=== PATIENT | male | born 1995 | race Hispanic/Latino ===

== ENCOUNTER 2016-10-22 16:38 | Emergency (ER) | payer MEDICAID ==
[2016-10-22 16:51] VITALS: BMI 27.1
[2016-10-22 17:12] LABS: URINE BILIRUBIN NEGATIVE (NEGATIVE); URINE BLOOD NEGATIVE (NEGATIVE); URINE GLUCOSE (UA) NEGATIVE (NEGATIVE); URINE LEUKOCYTE ESTERASE NEGATIVE Leu/uL (NEGATIVE); URINE NITRATE NEGATIVE (NEGATIVE); URINE PROTEIN NEGATIVE mg/dL (<30 mg/dL); URINE UROBILINOGEN 0.2 E.U./dL (<1 E.U./dL)
--- NOTE | 2016-10-22 17:21 | RAD ---
HISTORY: PES COMPARISON: 11/02/2015. FINDINGS: LUNGS: The lungs are well inflated and clear. PLEURA: No significant pleural effusion identified, no pneumothorax apparent. CARDIOVASCULAR: Normal. OSSEOUS STRUCTURES: No significant abnormalities. VISUALIZED UPPER ABDOMEN: Normal. OTHER FINDINGS: None. IMPRESSION: No active pulmonary disease.
[2016-10-22 17:22] VITALS: TEMP 98.6
[2016-10-22 17:26] LABS: URINE APPEARANCE CLEAR (CLEAR); URINE COLOR YELLOW (YELLOW)
[2016-10-22 17:27] LABS: BASO # 0.01 K/mm3 (0.0-2.0); BASO % 0.2 % (0.0-3.0); EOS # 0.1 (0.0-0.7); EOS % 0.8 % (1.5-5.0); GRAN # 4.85 (1.4-6.5); HEMOGLOBIN 12.2 gm/dL (14.0-18.0); LYMPH # 1.3 (1.2-3.4); LYMPH % 19.2 % (22.0-35.0); MEAN CORPUSCULAR HEMOGLOBIN 29.8 pg (25.0-35.0); MEAN CORPUSCULAR HGB CONC 33.9 g/dl (31.0-37.0); MEAN PLATELET VOLUME 9.4 fl (7.0-11.0); MONO # 0.5 (0.1-0.6); MONO % 6.8 % (1.0-6.0); PLATELET COUNT 256 10^3/uL (120.0-450.0); RBC 4.09 10^6/uL (3.5-6.1); RED CELL DISTRIBUTION WIDTH 12.6 % (11.5-14.5); WHITE BLOOD COUNT 6.6 10^3/ul (4.5-11.0)
[2016-10-22 17:33] LABS: ALB/GLOB RATIO 1.5 (1.1-1.8); ALBUMIN 4.2 g/dL (3.0-4.8); ALT/SGPT 21 U/L (7-56); AST/SGOT 27 U/L (15-59); BLOOD UREA NITROGEN 7 mg/dL (7-21); CALCIUM 9.6 mg/dL (8.4-10.5); GFR AFRICAN-AMERICAN > 60; GFR NON-AFRICAN AMERICAN > 60; SALICYLATE < 1 mg/dL (2.0-20.0)
[2016-10-22 17:35] LABS: ACETAMINOPHEN < 10.0 ug/ml (10.0-20.0)
[2016-10-22 17:35] LABS: BARBITURATES, UR NEGATIVE (NEGATIVE); BENZODIAZEPINES, UR POSITIVE (NEGATIVE); OPIATES, UR POSITIVE (NEGATIVE); PHENCYCLIDINE, UR NEGATIVE (NEGATIVE)
--- NOTE | 2016-10-22 17:47 | ED PDOC ---
Arrival/HPI - General Chief Complaint: Psychiatric Evaluation Time Seen by Provider: 10/22/16 16:42 Historian: Patient - History of Present Illness Time/Duration: Prior to Arrival Symptom Onset: Gradual Symptom Course: Unchanged Associated Symptoms (Text): 10/22/16 17:44 Brought to the emergency department from home via ambulance accompanied by police. Apparently, patient stated that he wanted to hurt himself, by overdosing , to police or his therapist. Patient is reporting that someone told him that he needed to say that he was suicidal in order for him to get into rehabilitation for narcotic abuse. Patient reports that he is not really suicidal, but just said that so that he could get detox. He does have a history of depression and substance abuse. Past Medical History - Tetanus Immunization Tetanus Immunization: Unknown - Past Medical History Past Medical History: No Previous - Cardiac Hx Cardiac Disorders: No Hx Cardiac Arrhythmia: Yes Hx Congestive Heart Failure: No Hx Hypertension: Yes - Pulmonary Hx Respiratory Disorders: No Hx Chronic Obstructive Pulmonary Disease (COPD): No - Neurological HX Cerebrovascular Accident: No Hx Transient Ischemic Attacks (TIA): Yes - HEENT Hx HEENT Disorder: No - Renal Hx Renal Disorder: No Hx Renal Failure: No - Endocrine/Metabolic Hx Endocrine Disorders: No Hx Diabetes Mellitus Type 1: No Hx Diabetes Mellitus Type 2: No Hx Hypothyroidism: No - Hematological/Oncological Hx Blood Disorders: No - Integumentary Hx Dermatological Disorder: No - Musculoskeletal/Rheumatological Hx Arthritis: No Hx Osteoporosis: Yes Hx Rheumatoid Arthritis: No - Gastrointestinal Hx Gastrointestinal Disorders: Yes Hx Gastroesophageal Reflux: Yes - Genitourinary/Gynecological Hx Genitourinary Disorders: Yes Hx Urinary Tract Infection: Yes - Psychiatric Hx Psychophysiologic Disorder: Yes Hx Anxiety: Yes Hx Depression: Yes Hx Emotional Abuse: No Hx Physical Abuse: No Hx Substance Use: Yes - Past Surgical History Past Surgical History: No Previous - Surgical History Other/Comment: hypospadias - Anesthesia Hx Anesthesia: Yes Hx Anesthesia Reactions: No Hx Malignant Hyperthermia: No - Suicidal Assessment Feels Threatened In Home Enviroment: No Family/Social History - Physician Review Nursing Documentation Reviewed: Yes Family/Social History: Unknown Family HX Smoking Status: Never Smoked Hx Alcohol Use: Yes Hx Substance Use: Yes Substance used: heroine today Hx Substance Use Treatment: No Allergies/Home Meds Allergies/Adverse Reactions: Allergies ibuprofen Allergy (Verified 07/18/17 17:22) RASH morphine Allergy (Verified 10/22/16 17:22) RASH Penicillins Allergy (Verified 10/22/16 17:22) SWELLING CLAMS Allergy (Uncoded 10/22/16 17:22) ANGIOEDEMA Home Medications: Home Meds Medication Instructions Recorded Confirmed Tylenol/Codeine 300 MG/30 MG 30 - 300 mg PO Q4 PRN 08/20/14 08/20/14 Xanax 1 mg PO Q6 PRN 08/20/14 08/20/14 Review of Systems - Physician Review All systems were reviewed & negative as marked: Yes - Review of Systems Constitutional: Normal Respiratory: Normal Cardiovascular: Normal Gastrointestinal: Normal Genitourinary Male: Normal Neurological: Normal Physical Exam Vital Signs Temp Pulse Resp BP Pulse Ox 10/22/16 17:17 98.6 F 115 H 16 149/99 H 98 Temperature: Afebrile Blood Pressure: Hypertensive Pulse: Tachycardic Respiratory Rate: Normal Appearance: Positive for: Well-Appearing, Non-Toxic, Comfortable Pain Distress: None Mental Status: Positive for: Alert and Oriented X 3 - Systems Exam Head: Present: Atraumatic, Normocephalic Pupils: Present: PERRL Extroacular Muscles: Present: EOMI Conjunctiva: Present: Normal Mouth: Present: Moist Mucous Membranes Pharnyx: No: ERYTHEMA, EXUDATE, TONSILS ENLARGED Neck: Present: Normal Range of Motion Respiratory/Chest: Present: Clear to Auscultation, Good Air Exchange. No: Respiratory Distress, Accessory Muscle Use Cardiovascular: Present: Regular Rate and Rhythm, Normal S1, S2. No: Murmurs Abdomen: Present: Normal Bowel Sounds. No: Tenderness, Distention, Peritoneal Signs Upper Extremity: Present: Normal Inspection. No: Cyanosis, Edema Lower Extremity: Present: Normal Inspection. No: Edema Neurological: Present: GCS=15, CN II-XII Intact, Speech Normal, Motor Func Grossly Intact, Gait Normal Skin: Present: Warm, Dry, Normal Color. No: Rashes Psychiatric: Present: Alert, Oriented x 3, Normal Insight, Normal Concentration Medical Decision Making ED Course and Treatment: 10/22/16 17:48 EKG shows sinus tachycardia rate approximately [address] or T-wave changes. Crisis has been called and will evaluate the patient in the emergency department. Care of this patient will be endorsed to the night emergency department physician waiting for crisis evaluation and final disposition. - Lab Interpretations Lab Results: 10/22/16 17:05 10/22/16 17:05 Lab Results 10/22/16 17:05: Alcohol, Quantitative < 10 10/22/16 17:05: Salicylates < 1 L, Acetaminophen < 10.0 L 10/22/16 17:05: Sodium 141, Potassium 4.7, Chloride 101, Carbon Dioxide 30, Anion Gap 15, BUN 7, Creatinine 0.5, Est GFR ( Amer) > 60, Est GFR (Non- Af Amer) > 60, Random Glucose 107, Calcium 9.6, Total Bilirubin 0.3, AST 27, ALT 21, Alkaline Phosphatase 61, Total Creatine Kinase 70, Total Protein 7.0, Albumin 4.2, Globulin 2.8, Albumin/Globulin Ratio 1.5 10/22/16 17:05: WBC 6.6 D, RBC 4.09, Hgb 12.2 L, Hct 36.0 L, MCV 88.0, MCH 29.8 , MCHC 33.9, RDW 12.6, Plt Count 256, MPV 9.4, Gran % 73.0 H, Lymph % (Auto) 19.2 L, [place] % (Auto) 6.8 H, Eos % (Auto) 0.8 L, Baso % (Auto) 0.2, Gran # 4.85 , Lymph # 1.3, [place] # 0.5, Eos # 0.1, Baso # 0.01 10/22/16 17:00: Urine Opiates Screen Positive H, Urine Methadone Screen Negative , Ur Barbiturates Screen Negative, Ur Phencyclidine Scrn Negative, Ur Amphetamines Screen Negative, U Benzodiazepines Scrn Positive H, U Oth Cocaine Metabols Negative, U Cannabinoids Screen Negative 10/22/16 17:00: Urine Color Yellow, Urine Appearance Clear, Urine pH 7.0, Ur Specific [place] 1.020, Urine Protein Negative, Urine Glucose (UA) Negative, Urine Ketones Negative, Urine Blood Negative, Urine Nitrate Negative, Urine Bilirubin Negative, Urine Urobilinogen 0.2, Ur Leukocyte Esterase Negative - RAD Interpretation Radiology Orders: 10/22/16 16:52 CHEST PORTABLE [RAD] Stat Chest 1 view shows no infiltrate effusion or cardiomegaly. Imaging System Administrator: ED Physician Disposition/Present on Arrival - Present on Arrival Any Indicators Present on Arrival: No History of DVT/PE: No History of Uncontrolled Diabetes: No Urinary Catheter: No History of Decub. Ulcer: No History Surgical Site Infection Following: None - Disposition Have Diagnosis and Disposition been Completed?: Yes Diagnosis: Depression, Substance abuse Disposition Time: 18:38 Patient Problems: Current Active Problems Problem Status Onset Depression Acute Substance abuse Acute Condition: GOOD Referrals: Hasmukh Jacob MD [Primary Care Provider] - Follow up with primary
--- NOTE | 2016-10-22 20:17 | ED PDOC ---
Physical Exam Vital Signs Temp Pulse Resp BP Pulse Ox 10/22/16 18:55 110 H 18 145/89 98 10/22/16 17:17 98.6 F 115 H 16 149/99 H 98 Medical Decision Making ED Course and Treatment: 10/22/16 20:17 pt cleared by pes for dc - Lab Interpretations Lab Results: 10/22/16 17:05 10/22/16 17:05 Lab Results 10/22/16 17:05: Alcohol, Quantitative < 10 10/22/16 17:05: Salicylates < 1 L, Acetaminophen < 10.0 L 10/22/16 17:05: Sodium 141, Potassium 4.7, Chloride 101, Carbon Dioxide 30, Anion Gap 15, BUN 7, Creatinine 0.5, Est GFR ( Amer) > 60, Est GFR (Non- Af Amer) > 60, Random Glucose 107, Calcium 9.6, Total Bilirubin 0.3, AST 27, ALT 21, Alkaline Phosphatase 61, Total Creatine Kinase 70, Total Protein 7.0, Albumin 4.2, Globulin 2.8, Albumin/Globulin Ratio 1.5 10/22/16 17:05: WBC 6.6 D, RBC 4.09, Hgb 12.2 L, Hct 36.0 L, MCV 88.0, MCH 29.8 , MCHC 33.9, RDW 12.6, Plt Count 256, MPV 9.4, Gran % 73.0 H, Lymph % (Auto) 19.2 L, [place] % (Auto) 6.8 H, Eos % (Auto) 0.8 L, Baso % (Auto) 0.2, Gran # 4.85 , Lymph # 1.3, [place] # 0.5, Eos # 0.1, Baso # 0.01 10/22/16 17:00: Urine Opiates Screen Positive H, Urine Methadone Screen Negative , Ur Barbiturates Screen Negative, Ur Phencyclidine Scrn Negative, Ur Amphetamines Screen Negative, U Benzodiazepines Scrn Positive H, U Oth Cocaine Metabols Negative, U Cannabinoids Screen Negative 10/22/16 17:00: Urine Color Yellow, Urine Appearance Clear, Urine pH 7.0, Ur Specific [place] 1.020, Urine Protein Negative, Urine Glucose (UA) Negative, Urine Ketones Negative, Urine Blood Negative, Urine Nitrate Negative, Urine Bilirubin Negative, Urine Urobilinogen 0.2, Ur Leukocyte Esterase Negative - RAD Interpretation Radiology Orders: 10/22/16 16:52 CHEST PORTABLE [RAD] Stat Disposition/Present on Arrival - Present on Arrival Any Indicators Present on Arrival: No History of DVT/PE: No History of Uncontrolled Diabetes: No Urinary Catheter: No History of Decub. Ulcer: No History Surgical Site Infection Following: None - Disposition Have Diagnosis and Disposition been Completed?: Yes Diagnosis: Depression, Substance abuse Disposition: HOME/ ROUTINE Disposition Time: 20:17 Patient Problems: Current Active Problems Problem Status Onset Depression Acute Substance abuse Acute Condition: GOOD Referrals: Hasmukh Jacob MD [Primary Care Provider] - Follow up with primary
[2016-10-22 22:21] VITALS: BP 126/78; PULSE 78; RESP 16; O2SAT 99
--- NOTE | 2016-10-23 12:45 | CARD ---
APPROVED REPORT EKG Measurement Heart [id number] <Conclusion> Sinus tachycardia Otherwise normal ECG
== END 2016-10-22 20:30 | disposition home or self-care (01) ==
LOC: ED 16:38
DX: F32.9 Major depressive disorder, single episode, unspecified (principal); F19.10 Other psychoactive substance abuse, uncomplicated; I10 Essential (primary) hypertension; F41.9 Anxiety disorder, unspecified; Z86.73 Personal history of transient ischemic attack (TIA), and cerebral infarction without residual deficits

== ENCOUNTER 2016-11-21 15:13 | Emergency (ER) | payer MEDICAID ==
[2016-11-21 15:16] VITALS: BMI 27.1
[2016-11-21 15:34] VITALS: BP 121/90; PULSE 106; RESP 18; TEMP 98.4
[2016-11-21] MEDS ORDERED: Lidocaine 1% Inj (20ml) ONE (15:42)
--- NOTE | 2016-11-21 16:16 | ED PDOC ---
Arrival/HPI - General Chief Complaint: Abnormal Skin Integrity Time Seen by Provider: 11/21/16 15:20 Historian: Patient - History of Present Illness Narrative History of Present Illness (Text): 11/21/16 15:20 Alexx Camp is a 21 year old male, whose past medical history includes abscesses, who presents to the emergency department complaining of a worsening abscess to his left thigh for 5 days. Patient has no other complaints at this time. Time/Duration: < week (5 days) Symptom Onset: Gradual Symptom Course: Worsening Activities at Onset: Light Context: Home Past Medical History - Provider Review Nursing Documentation Reviewed: Yes - Infectious Disease Hx of Infectious Diseases: None - Tetanus Immunization Tetanus Immunization: Unknown - Past Medical History Past Medical History: No Previous - Cardiac Hx Cardiac Disorders: No Hx Hypertension: Yes - Pulmonary Hx Tuberculosis: No - Neurological HX Cerebrovascular Accident: No Hx Seizures: No - HEENT Hx HEENT Disorder: No - Renal Hx Renal Disorder: No Hx Renal Failure: No - Endocrine/Metabolic Hx Endocrine Disorders: No Hx Diabetes Mellitus Type 1: No Hx Diabetes Mellitus Type 2: No Hx Hypothyroidism: No - Hematological/Oncological Hx Cancer: No - Integumentary Hx Dermatological Disorder: No - Musculoskeletal/Rheumatological Hx Arthritis: No Hx Osteoporosis: Yes Hx Rheumatoid Arthritis: No - Gastrointestinal Hx Gastrointestinal Disorders: Yes Hx Gastroesophageal Reflux: Yes - Genitourinary/Gynecological Hx Sexually Transmitted Diseases: No - Psychiatric Hx Psychophysiologic Disorder: Yes Hx Anxiety: Yes Hx Depression: Yes Hx Emotional Abuse: No Hx Physical Abuse: No Hx Substance Use: Yes - Past Surgical History Past Surgical History: No Previous - Surgical History Other/Comment: hypospadias - Anesthesia Hx Anesthesia: Yes Hx Anesthesia Reactions: No Hx Malignant Hyperthermia: No - Suicidal Assessment Feels Threatened In Home Enviroment: No Family/Social History - Physician Review Nursing Documentation Reviewed: Yes Family/Social History: No Known Family HX Smoking Status: Never Smoked Hx Alcohol Use: Yes Hx Substance Use: Yes Substance used: heroine today Hx Substance Use Treatment: No Allergies/Home Meds Allergies/Adverse Reactions: Allergies ibuprofen Allergy (Verified 11/21/16 15:27) RASH morphine Allergy (Verified 11/21/16 15:27) RASH Penicillins Allergy (Verified 11/21/16 15:27) SWELLING CLAMS Allergy (Uncoded 11/21/16 15:27) ANGIOEDEMA Home Medications: Home Meds Medication Instructions Recorded Confirmed Paolanax 2 mg PO DAILY 08/20/14 11/21/16 cloNIDine [Catapres] 0.1 mg PO BID 11/21/16 11/21/16 Physical Exam - Physical Exam Narrative Physical Exam (Text): - Review of Systems Constitutional: Normal. absent: Fatigue, Weight Change, Fevers Eyes: Normal ENT: Normal Respiratory: Normal absent: SOB, Cough, Sputum Cardiovascular: Normal absent: Chest pain, Palpitations, Syncope Gastrointestinal: Normal absent: Abdominal pain, Diarrhea, Nausea, Vomiting Genitourinary: Normal. absent: Dysuria, Frequency, Hematuria Musculoskeletal: Normal. absent: Arthralgias, Back Pain, Neck Pain Skin: Worsening abscess to left thigh. Neurological: Normal absent: Focal Weakness Endocrine: Normal Hemo/Lymphatic: Normal Psychiatric: Normal - Physical exam Patient appears age appropriate, speaking full sentences without difficulty. - Systems Exam Head: Present: Atraumatic, Normocephalic Pupils: Present: PERRL Extraocular Muscles: Present: EOMI Conjunctiva: Present: Normal Mouth: Present: Moist Mucous Membranes Neck: Present: Normal Range of Motion. No: MIDLINE TENDERNESS, Paraspinal Tenderness Respiratory/Chest: Present: Clear to Auscultation, Good Air Exchange. No: Respiratory Distress, Accessory Muscle Use, Tachypnic Cardiovascular: Present: Regular Rate and Rhythm, Normal S1, S2, Peripheral Pulses Present. No: Murmurs Abdomen: Present: Normal Bowel Sounds, No: Tenderness, Peritoneal Signs, Rebound, Guarding, Distention Back: Present: Normal Inspection. No: Midline Tenderness, Paraspinal Tenderness Upper Extremity: Present: Normal Inspection. No: Cyanosis, Edema Lower Extremity: large 5 cm abscess to left thigh with surrounding cellulitis. Fluctuance noted. Neurological: Present: GCS=15, Speech Normal, cranial nerves II through XII fully intact with no cerebellar abnormality, neuro-sensory fully intact. No focal neurological deficits. Skin: Present: Warm, Dry, Normal Color. No: Rashes Lymphatic: Present: OX3, NI, NC Psychiatric: Present: Alert, Oriented x 3, Normal Insight, Normal Concentration Vital Signs Reviewed: Yes Vital Signs Temp Pulse Resp BP Pulse Ox 11/21/16 16:29 18 97 11/21/16 15:33 98.4 F 106 H 18 121/90 100 Temperature: Afebrile Blood Pressure: Normal Pulse: Tachycardic Respiratory Rate: Normal Appearance: Positive for: Well-Appearing, Non-Toxic, Comfortable Pain Distress: None Mental Status: Positive for: Alert and Oriented X 3 Medical Decision Making ED Course and Treatment: 11/21/16 15:20 Impression: 21 year old male complaining of a worsening abscess to his left thigh for the past 5 days. Differential Diagnosis included but are not limited to: Abscess Plan: -- I&D procedure -- discharge Progress Notes: 11/21/16 16:45 Procedure: Incision & Drainage. Verbal consent obtained. Performed by the emergency provider Indication: Abscess Location: Right upper Preparation: The area was prepped and draped in the usual sterile fashion and was cleansed with 1% lidocaine. Local infiltration of Lidocaine 1% with Epi was used for anesthesia. Procedure: The most fluctuant portion of the abscess was incised with a #11 scalpel. Approximately 20 mL of purulent and serosanguinous fluid was obtained. The abscess was packed. A dressing was applied by the RN. Post-Procedure: On exam the abscess is notably less fluctuant. The patient tolerated the procedure well, and there were no complications. Cultured: NO After procedure, patient states that he feels much better and pain resolved. Patient instructed to follow up with ER or PMD for packing removal after 48 hours. Pt verbalized understands to return to the ER right away for new or worsening symptoms or for inability to f/u with PMD or specialist as instructed. Patient verbalized full agreement with and understanding of discharge instructions. States that he agrees with the plan and disposition. Verbalized and repeated discharge instructions and plan. I have given the patient opportunity to ask any additional questions. - Medication Orders Current Medication Orders: Discontinued Medications Lidocaine HCl (Lidocaine 1% (20ml)) Confirm Administered Dose 20 ml .ROUTE .STK- MED ONE Stop: 11/21/16 15:43 - Scribe Statement The provider has reviewed the documentation as recorded by the Alexandru Frank Provider Scribe Attestation: All medical record entries made by the Scribe were at my direction and personally dictated by me. I have reviewed the chart and agree that the record accurately reflects my personal performance of the history, physical exam, medical decision making, and the department course for this patient. I have also personally directed, reviewed, and agree with the discharge instructions and disposition. Disposition/Present on Arrival - Present on Arrival Any Indicators Present on Arrival: No History of DVT/PE: No History of Uncontrolled Diabetes: No Urinary Catheter: No History of Decub. Ulcer: No History Surgical Site Infection Following: None - Disposition Have Diagnosis and Disposition been Completed?: Yes Diagnosis: Abscess Disposition: HOME/ ROUTINE Disposition Time: 16:14 Patient Plan: Discharge Condition: GOOD Discharge Instructions (ExitCare): Abscess Incision and Drainage (ED) Additional Instructions: PLEASE RETURN TO THE ER IN 2 DAYS FOR WOUND CHECK AND PACKING REMOVAL RETURN TO THE ER RIGHT AWAY FOR FEVERS, CHILLS, PAIN, DRAINAGE, BLEEDING, NUMBNESS RETURN TO THE ER FOR ANY OTHER CONCERNS OR COMPLAINTS Prescriptions: Cephalexin [Keflex] 500 mg PO TID #21 capsule oxyCODONE/Acetaminophen [Percocet 5/325 mg Tab] 1 ea PO BID PRN #6 tab PRN Reason: Pain, Moderate (4-7) Referrals: PCP,NO [Primary Care Provider] - Follow up with primary Hasmukh Jacob MD [Staff Provider] - Follow up with primary Forms: [employer] ([place])
[2016-11-21 16:30] VITALS: O2SAT 97
== END 2016-11-21 16:30 | disposition home or self-care (01) ==
LOC: ED 15:13
DX: L02.416 Cutaneous abscess of left lower limb (principal); I10 Essential (primary) hypertension

== ENCOUNTER 2016-11-23 20:13 | Emergency (ER) | payer MEDICAID ==
[2016-11-23 20:29] VITALS: BMI 28.8
[2016-11-23 20:35] VITALS: BP 95/67; PULSE 92; TEMP 98
--- NOTE | 2016-11-23 21:23 | ED PDOC ---
Arrival/HPI - General Chief Complaint: Wound Check Time Seen by Provider: 11/23/16 21:22 Historian: Patient - History of Present Illness Narrative History of Present Illness (Text): 11/23/16 21:22 Patient was just assigned a room in ED This 21 yo male came to this ED for wound check, and packing removal. Patient stated he has an I&D x 2 days ago, and he was placed on Keflex. Patient stated wound is better than 2 days ago. Denies fever or new complain. Time/Duration: Other (see hpi) Context: Home Past Medical History - Provider Review Nursing Documentation Reviewed: Yes - Infectious Disease Hx of Infectious Diseases: None - Tetanus Immunization Tetanus Immunization: Unknown - Past Medical History Past Medical History: No Previous - Cardiac Hx Cardiac Disorders: No Hx Hypertension: Yes - Pulmonary Hx Tuberculosis: No - Neurological HX Cerebrovascular Accident: No Hx Seizures: No - HEENT Hx HEENT Disorder: No - Renal Hx Renal Disorder: No Hx Renal Failure: No - Endocrine/Metabolic Hx Endocrine Disorders: No - Hematological/Oncological Hx Cancer: No - Integumentary Hx Dermatological Disorder: No - Musculoskeletal/Rheumatological Hx Osteoporosis: Yes - Gastrointestinal Hx Gastrointestinal Disorders: Yes Hx Gastroesophageal Reflux: Yes - Genitourinary/Gynecological Hx Sexually Transmitted Diseases: No - Psychiatric Hx Psychophysiologic Disorder: Yes Hx Anxiety: Yes Hx Depression: Yes Hx Physical Abuse: No Hx Substance Use: Yes - Past Surgical History Past Surgical History: No Previous - Surgical History Other/Comment: hypospadias - Anesthesia Hx Anesthesia: Yes Hx Anesthesia Reactions: No Hx Malignant Hyperthermia: No - Suicidal Assessment Feels Threatened In Home Enviroment: No Family/Social History - Physician Review Nursing Documentation Reviewed: Yes Family/Social History: Other (non-contributory) Smoking Status: Never Smoked Hx Alcohol Use: Yes Hx Substance Use: Yes Substance used: heroine today Hx Substance Use Treatment: No Allergies/Home Meds Allergies/Adverse Reactions: Allergies ibuprofen Allergy (Verified 11/21/16 15:27) RASH morphine Allergy (Verified 11/21/16 15:27) RASH Penicillins Allergy (Verified 11/21/16 15:27) SWELLING CLAMS Allergy (Uncoded 11/21/16 15:27) ANGIOEDEMA Home Medications: Home Meds Medication Instructions Recorded Confirmed Xanax 2 mg PO DAILY 08/20/14 11/23/16 cloNIDine [Catapres] 0.1 mg PO BID 11/21/16 11/23/16 Review of Systems - Review of Systems Constitutional: Normal. absent: Fatigue, Weight Change, Fevers Eyes: Normal ENT: Normal Respiratory: Normal Cardiovascular: Normal Gastrointestinal: Normal Genitourinary Male: Normal Musculoskeletal: Normal Skin: Other (see hpi) Neurological: Normal Endocrine: Normal Hemo/Lymphatic: Normal Psychiatric: Normal Physical Exam Vital Signs Temp Pulse Resp BP Pulse Ox 11/23/16 20:14 98 F 92 H 18 95/67 L 100 Temperature: Afebrile Blood Pressure: Normal Pulse: Regular Respiratory Rate: Normal Appearance: Positive for: Well-Appearing, Non-Toxic, Comfortable Pain Distress: None Mental Status: Positive for: Alert and Oriented X 3 - Systems Exam Head: Present: Atraumatic, Normocephalic Pupils: Present: PERRL Extroacular Muscles: Present: EOMI Conjunctiva: Present: Normal Mouth: Present: Moist Mucous Membranes Neck: Present: Normal Range of Motion Upper Extremity: Present: Normal Inspection, Normal ROM Lower Extremity: Present: NORMAL PULSES, Normal ROM, Neurovascularly Intact, Capillary Refill < 2 s, Other ((+) left anterior mid thigh wound was examined. Packing in place. Patient noted surrounding erythema has improved). No: Edema , CALF TENDERNESS Neurological: Present: GCS=15, CN II-XII Intact, Speech Normal, Motor Func Grossly Intact, Normal Sensory Function, Normal Cerebellar Funct, Gait Normal Skin: Present: Warm, Dry, Normal Color. No: Rashes Psychiatric: Present: Alert, Oriented x 3 Medical Decision Making ED Course and Treatment: 11/23/16 21:43 Patient was recommended to return to ED if wound becomes infected, or drainage, or worsen symptoms. Packing was removed without complication. Patient tolerated procedure well. Re-evaluation Time: 21:43 Reassessment Condition: Re-examined, Improved Disposition/Present on Arrival - Present on Arrival Any Indicators Present on Arrival: No History of DVT/PE: No History of Uncontrolled Diabetes: No Urinary Catheter: No History of Decub. Ulcer: No History Surgical Site Infection Following: None - Disposition Have Diagnosis and Disposition been Completed?: Yes Diagnosis: Encounter for wound re-check, Encounter for removal of abscess packing Disposition: HOME/ ROUTINE Disposition Time: 21:48 Patient Plan: Discharge Condition: GOOD Discharge Instructions (ExitCare): Abscess Incision and Drainage (ED) Additional Instructions: Call private doctor for follow up visit in 1-2 days. Take medication as instructed. Return top emergency if symptoms worsen. Clean wound daily with soap and water only Prescriptions: Sulfamethoxazole/Trimethoprim [Bactrim DS 800 mg-160 mg] 1 tab PO BID #14 tab Referrals: [facility] [Outside] - Follow up with primary [facility] [Outside] - Follow up with primary Forms: [employer] (Citizen [place])
[2016-11-23] MEDS ORDERED: Tmp-Smz 800 mg-160 mg DS Tab PO STA (21:48)
[2016-11-23 22:15] VITALS: RESP 16; O2SAT 99
== END 2016-11-23 22:15 | disposition home or self-care (01) ==
LOC: ED 20:13
DX: Z51.89 Encounter for other specified aftercare (principal); Z48.00 Encounter for change or removal of nonsurgical wound dressing; I10 Essential (primary) hypertension

== ENCOUNTER 2017-01-19 11:10 | Emergency (ER) | payer MEDICAID ==
[2017-01-19 11:22] VITALS: BMI 27.1
[2017-01-19 11:25] VITALS: TEMP 97.9; O2SAT 100
--- NOTE | 2017-01-19 11:54 | ED PDOC ---
Arrival/HPI - General Chief Complaint: Seizure Time Seen by Provider: 01/19/17 11:34 Historian: Patient - History of Present Illness Narrative History of Present Illness (Text): 01/19/17 11:51 21 year old male, whose past medical history includes seizure and drug abuse, presents to the emergency department complaining of a witnessed seizure episode today. He states he went over to his grandmother's room to sit down and last thing he remembers was waking up on the floor. Patient reports shooting up heroin at 3AM and said to began withdrawing at 8:30AM and then taking Soma afterwards. He also says he took his gabapentin around 3 am. Patient's last seizure episode was several days ago. Patient denies any focal weakness, fever, chills, nausea, vomiting, diarrhea, urinary symptoms, back pain, neck pain, or any other complaints. Neurologist: Dr. Davis PMD: Dr. Jacob Time/Duration: Prior to Arrival Symptom Onset: Gradual Symptom Course: Unchanged Activities at Onset: Light Context: Home Past Medical History - Provider Review Nursing Documentation Reviewed: Yes - Infectious Disease Hx of Infectious Diseases: None - Tetanus Immunization Tetanus Immunization: Unknown - Past Medical History Past Medical History: No Previous - Cardiac Hx Cardiac Disorders: No Hx Hypertension: Yes - Pulmonary Hx Tuberculosis: No - Neurological HX Cerebrovascular Accident: No Hx Seizures: No - HEENT Hx HEENT Disorder: No - Renal Hx Renal Disorder: No Hx Renal Failure: No - Endocrine/Metabolic Hx Endocrine Disorders: No - Hematological/Oncological Hx Cancer: No - Integumentary Hx Dermatological Disorder: No - Musculoskeletal/Rheumatological Hx Osteoporosis: Yes - Gastrointestinal Hx Gastrointestinal Disorders: Yes Hx Gastroesophageal Reflux: Yes - Genitourinary/Gynecological Hx Sexually Transmitted Diseases: No - Psychiatric Hx Psychophysiologic Disorder: Yes Hx Anxiety: Yes Hx Depression: Yes Hx Physical Abuse: No Hx Substance Use: Yes - Past Surgical History Past Surgical History: No Previous - Surgical History Other/Comment: hypospadias - Anesthesia Hx Anesthesia: Yes Hx Anesthesia Reactions: No Hx Malignant Hyperthermia: No - Suicidal Assessment Feels Threatened In Home Enviroment: No Family/Social History - Physician Review Nursing Documentation Reviewed: Yes Family/Social History: No Known Family HX Smoking Status: Never Smoked Hx Alcohol Use: Yes Hx Substance Use: Yes Substance used: heroine today Hx Substance Use Treatment: No Allergies/Home Meds Allergies/Adverse Reactions: Allergies ibuprofen Allergy (Verified 11/21/16 15:27) RASH morphine Allergy (Verified 11/21/16 15:27) RASH Penicillins Allergy (Verified 11/21/16 15:27) SWELLING CLAMS Allergy (Uncoded 11/21/16 15:27) ANGIOEDEMA Home Medications: Home Meds Medication Instructions Recorded Confirmed cloNIDine [Catapres] 0.1 mg PO HS 11/21/16 01/19/17 Benztropine [Benztropine Mesylate] 2 mg PO HS 01/19/17 01/19/17 Buprenorphine Hydrochloride 8 mg SL BID 01/19/17 01/19/17 [Subutex] Escitalopram [Lexapro] 10 mg PO DAILY 01/19/17 01/19/17 Gabapentin [Neurontin] 300 mg PO TID 01/19/17 01/19/17 chlorproMAZINE [chlorpromazine HCl] 100 mg PO HS 01/19/17 01/19/17 Review of Systems - Physician Review All systems were reviewed & negative as marked: Yes - Review of Systems Constitutional: absent: Fevers, Other (chills) Respiratory: absent: SOB, Cough Cardiovascular: Chest Pain (right sided chest pain radiating to his right arm) Gastrointestinal: absent: Diarrhea, Nausea, Vomiting Musculoskeletal: absent: Back Pain, Neck Pain Neurological: Headache, Seizure. absent: Dizziness, Focal Weakness Physical Exam Vital Signs Reviewed: Yes Vital Signs Temp Pulse Resp BP Pulse Ox 01/19/17 14:00 90 20 102/51 L 100 01/19/17 12:35 88 22 109/56 L 100 01/19/17 11:11 97.9 F 114 H 14 137/82 100 Temperature: Afebrile Blood Pressure: Normal Pulse: Tachycardic Respiratory Rate: Normal Appearance: Positive for: Well-Appearing, Non-Toxic, Comfortable Pain Distress: None Mental Status: Positive for: other (Somnolent and oriented x3) - Systems Exam Head: Present: Atraumatic, Normocephalic Pupils: Present: PERRL Extroacular Muscles: Present: EOMI Conjunctiva: Present: Normal Mouth: Present: Moist Mucous Membranes Pharnyx: Present: Normal. No: ERYTHEMA, EXUDATE Neck: Present: Normal Range of Motion Respiratory/Chest: Present: Clear to Auscultation, Good Air Exchange. No: Respiratory Distress, Accessory Muscle Use Cardiovascular: Present: Regular Rate and Rhythm, Normal S1, S2. No: Murmurs Abdomen: Present: Normal Bowel Sounds. No: Tenderness, Distention, Peritoneal Signs Back: Present: Normal Inspection Upper Extremity: Present: Normal Inspection. No: Cyanosis, Edema Lower Extremity: Present: Normal Inspection. No: Edema Neurological: Present: GCS=15, CN II-XII Intact, Speech Normal Skin: Present: Warm, Dry, Normal Color. No: Rashes Psychiatric: Present: Oriented x 3, Normal Insight, Normal Concentration, Other (mildly somnolent) Medical Decision Making ED Course and Treatment: 01/19/17 11:52 Impression: 21 year old male presents for a seizure episode today associated with right chest pain radiating to the right arm x 2 days. EKG is normal. Plan: -- Brain CT -- EKG -- Labs -- Chest X-ray -- Neurotin -- IV Fluids -- Tylenol -- Reassess and disposition Progress Notes: EKG shows NSR at 97 BPM with normal intervals and axis. No ST/T changes. Interpreted by me. PROCEDURE: CT HEAD WITHOUT CONTRAST. Dictator: Hasmukh Ennis MD Report Date : 01/19/2017 13:00:15 IMPRESSION: No acute intracranial hemorrhage. PROCEDURE: Chest X-ray Dictator: Hasmukh Ennis MD Report Date : 01/19/2017 13:02:34 IMPRESSION: No active disease. 01/19/17 15:29 21 y.o. male with noted history of polysubtance abuse and witnessed seizure today. No SI. The patient is continuing to use drugs, including heroine, marijuana, benzos, clonidine, and muscle relaxants, which he refused to say how he obtains. He potentially affects his seizure threshholds and needs to be d/c off the drugs. At this time, given his polysubstance abuse, his antiepileptic will not be titrated as he introduces multiple substances. He instead needs neuro reassessment. He is supposed to f/u with Dr. Davis, neurology in [place] - will be d/c to f/u neuro and discussed extensively with him drug cessation with mother present. - Lab Interpretations Lab Results: 01/19/17 11:40 01/19/17 11:40 Lab Results 01/19/17 14:30: Urine Opiates Screen Positive H, Urine Methadone Screen Negative , Ur Barbiturates Screen Negative, Ur Phencyclidine Scrn Negative, Ur Amphetamines Screen Negative, U Benzodiazepines Scrn Positive H, U Oth Cocaine Metabols Negative, U Cannabinoids Screen Negative 01/19/17 14:30: Urine Color Yellow, Urine Appearance Clear, Urine pH 7.0, Ur Specific [place] 1.010, Urine Protein Negative, Urine Glucose (UA) Negative, Urine Ketones Negative, Urine Blood Negative, Urine Nitrate Negative, Urine Bilirubin Negative, Urine Urobilinogen 1.0 H, Ur Leukocyte Esterase Negative 01/19/17 11:40: Salicylates < 1 L, Acetaminophen < 10.0 L 01/19/17 11:40: Sodium 139, Potassium 3.8, Chloride 100, Carbon Dioxide 28, Anion Gap 15, BUN 10, Creatinine 0.6 L, Est GFR ( Amer) > 60, Est GFR ( Non-Af Amer) > 60, Random Glucose 89, Calcium 9.1, Total Bilirubin 0.7, AST 39, ALT 49, Alkaline Phosphatase 104, Lactate Dehydrogenase 374, Total Creatine Kinase 59, Troponin I < 0.01, Total Protein 7.3, Albumin 4.2, Globulin 3.1, Albumin/Globulin Ratio 1.4, Lipase 40 01/19/17 11:40: PT 11.3, INR 1.05, APTT 31.5 H 01/19/17 11:40: WBC 5.5, RBC 4.10, Hgb 11.8 L, Hct 34.9 L, MCV 85.1, MCH 28.8, MCHC 33.8, RDW 12.8, Plt Count 173, MPV 9.4, Gran % 60.9, Lymph % (Auto) 29.5, [place] % (Auto) 7.2 H, Eos % (Auto) 2.2, Baso % (Auto) 0.2, Gran # 3.37, Lymph # 1.6, Gar[place] # 0.4, Eos # 0.1, Baso # 0.01 I have reviewed the lab results: Yes - RAD Interpretation Radiology Orders: 01/19/17 11:58 CHEST PORTABLE [RAD] Stat 01/19/17 12:01 Brain [HEAD W/O CONTRAST] [CT] Stat - EKG Interpretation Interpreted by ED Physician: Yes Type: 12 lead EKG - Medication Orders Current Medication Orders: Discontinued Medications Acetaminophen (Tylenol 325mg Tab) 975 mg PO STAT STA Stop: 01/19/17 12:00 Last Admin: 01/19/17 12:13 Dose: 975 mg Gabapentin (Neurontin) 600 mg PO ONCE STA PRN Reason: Protocol Stop: 01/19/17 12:01 Last Admin: 01/19/17 12:36 Dose: 600 mg Sodium Chloride (Sodium Chloride 0.9%) 1,000 mls @ 999 mls/hr IV .Q1H1M STA Stop: 01/19/17 12:59 Last Admin: 01/19/17 12:13 Dose: 999 mls/hr eMAR Start Stop Document 01/19/17 12:13 CNR (Rec: 01/19/17 12:13 CNR [facility] [id number]) Intravenous Solution Start Date 01/19/17 Start Time 12:13 - Scribe Statement The provider has reviewed the documentation as recorded by the Scribjohn Noriega All medical record entries made by the Scribe were at my direction and personally dictated by me. I have reviewed the chart and agree that the record accurately reflects my personal performance of the history, physical exam, medical decision making, and the department course for this patient. I have also personally directed, reviewed, and agree with the discharge instructions and disposition. Disposition/Present on Arrival - Present on Arrival Any Indicators Present on Arrival: No History of DVT/PE: No History of Uncontrolled Diabetes: No Urinary Catheter: No History of Decub. Ulcer: No History Surgical Site Infection Following: None - Disposition Have Diagnosis and Disposition been Completed?: Yes Diagnosis: Seizure, Polysubstance abuse Disposition: HOME/ ROUTINE Disposition Time: 15:25 Patient Plan: Discharge Condition: GOOD Discharge Instructions (ExitCare): Epilepsy (ED), Polysubstance Abuse (ED) Additional Instructions: You must stop all illicit drug use and take you gabapentin as prescribed and follow up with your primary care doctor and neurologist. Return to the emergency department if any new concerning symptoms. Referrals: Hasmukh Jacob MD [Family Provider] - Follow up with primary Karen Davis MD [Medical Doctor] - Follow up with primary Forms: [employer] (Brazilian)
[2017-01-19] MEDS ORDERED: Sodium Chloride 0.9% 1,000 ML IV STA (11:59)
[2017-01-19 12:21] LABS: BASO # 0.01 K/mm3 (0.0-2.0); BASO % 0.2 % (0.0-3.0); EOS # 0.1 (0.0-0.7); EOS % 2.2 % (1.5-5.0); GRAN # 3.37 (1.4-6.5); GRAN % 60.9 % (50.0-68.0); HEMATOCRIT 34.9 % (42.0-52.0); LYMPH # 1.6 (1.2-3.4); LYMPH % 29.5 % (22.0-35.0); MEAN CELL VOLUME 85.1 fl (80.0-105.0); MEAN CORPUSCULAR HEMOGLOBIN 28.8 pg (25.0-35.0); MEAN CORPUSCULAR HGB CONC 33.8 g/dl (31.0-37.0); MEAN PLATELET VOLUME 9.4 fl (7.0-11.0); MONO # 0.4 (0.1-0.6); MONO % 7.2 % (1.0-6.0); RED CELL DISTRIBUTION WIDTH 12.8 % (11.5-14.5); WHITE BLOOD COUNT 5.5 10^3/ul (4.5-11.0)
[2017-01-19 12:27] LABS: ALB/GLOB RATIO 1.4 (1.1-1.8); ALKALINE PHOSPHATASE 104 U/L (38-126); ALT/SGPT 49 U/L (7-56); AST/SGOT 39 U/L (17-59); BILIRUBIN,TOTAL 0.7 mg/dL (0.2-1.3); BLOOD UREA NITROGEN 10 mg/dL (7-21); CALCIUM 9.1 mg/dL (8.4-10.5); CARBON DIOXIDE 28 mmol/L (21-33); CHLORIDE 100 mmol/L (98-107); GFR AFRICAN-AMERICAN > 60; GLUCOSE,RANDOM 89 mg/dL (70-110); LIPASE 40 U/L (23-300); POTASSIUM 3.8 mmol/L (3.6-5.0); SODIUM 139 mmol/L (132-148); TOTAL PROTEIN 7.3 g/dL (5.8-8.3)
[2017-01-19 12:32] LABS: INR 1.05 (0.93-1.08); PARTIAL THROMBOPLASTIN TIME 31.5 Seconds (23.7-30.8)
[2017-01-19 12:38] LABS: TROPONIN I < 0.01 ng/mL
--- NOTE | 2017-01-19 13:03 | CT ---
PROCEDURE: CT HEAD WITHOUT CONTRAST. HISTORY: seizure, headache COMPARISON: Comparison made with CT scan of the brain dated 10/25/2015 TECHNIQUE: Axial computed tomography images were obtained through the head/brain without intravenous contrast. Radiation dose: Total exam DLP = 775.01 mGy-cm. This CT exam was performed using one or more of the following dose reduction techniques: Automated exposure control, adjustment of the mA and/or kV according to patient size, and/or use of iterative reconstruction technique. FINDINGS: HEMORRHAGE: No intracranial hemorrhage. BRAIN: No mass effect or edema. No atrophy or chronic microvascular ischemic changes. VENTRICLES: Unremarkable. No hydrocephalus. CALVARIUM: Unremarkable. PARANASAL SINUSES: Unremarkable as visualized. No significant inflammatory changes. MASTOID AIR CELLS: Unremarkable as visualized. No inflammatory changes. OTHER FINDINGS: None. IMPRESSION: No acute intracranial hemorrhage.
--- NOTE | 2017-01-19 13:04 | RAD ---
HISTORY: R side cp COMPARISON: 10/22/2016 FINDINGS: LUNGS: No active pulmonary disease. PLEURA: No significant pleural effusion identified, no pneumothorax apparent. CARDIOVASCULAR: Normal. OSSEOUS STRUCTURES: No significant abnormalities. VISUALIZED UPPER ABDOMEN: Normal. OTHER FINDINGS: None. IMPRESSION: No active disease.
[2017-01-19 14:49] LABS: URINE BILIRUBIN NEGATIVE (NEGATIVE); URINE BLOOD NEGATIVE (NEGATIVE); URINE GLUCOSE (UA) NEGATIVE (NEGATIVE); URINE KETONE NEGATIVE (NEGATIVE); URINE LEUKOCYTE ESTERASE NEGATIVE Leu/uL (NEGATIVE); URINE PROTEIN NEGATIVE mg/dL (<30 mg/dL)
[2017-01-19 14:52] LABS: URINE APPEARANCE CLEAR (CLEAR); URINE COLOR YELLOW (YELLOW)
[2017-01-19 15:48] VITALS: BP 106/56; PULSE 78; RESP 17
--- NOTE | 2017-01-20 12:24 | CARD ---
APPROVED REPORT EKG Measurement Heart [id number] <Conclusion> Normal sinus rhythm Normal ECG
== END 2017-01-19 15:47 | disposition home or self-care (01) ==
LOC: ED 11:10
DX: R56.9 Unspecified convulsions (principal); F19.10 Other psychoactive substance abuse, uncomplicated; I10 Essential (primary) hypertension; M81.0 Age-related osteoporosis without current pathological fracture; Z88.0 Allergy status to penicillin
CPT/HCPCS: 70450; 71010; 80053; 80324; 80329; 80345; 80346; 80349; 80353; 80358; 80361; 81003; 82550; 83615; 83690; 83992; 84484; 85025; 85610; 85730; 93005; 99285; J7040

== ENCOUNTER 2017-04-20 16:31 | Emergency (ER) | payer MEDICAID ==
[2017-04-20 16:31] VITALS: BMI 27.1
--- NOTE | 2017-04-20 17:31 | ED PDOC ---
Arrival/HPI - General Chief Complaint: Anxiety Time Seen by Provider: 04/20/17 16:58 Historian: Patient - History of Present Illness Narrative History of Present Illness (Text): 04/20/17 17:27 21-year-old male presents today stating that he had a panic attack at home. Patient states he's been arguing with his father. Patient states that he soak 0.5 mg of Xanax earlier today with some improvement. Patient states she still feels a little anxious. He denies dizziness or weakness. Patient denies abdominal pain. No nausea or vomiting. Patient complaining of chest pains and feeling anxious. Patient states 2 days ago he snorted heroin. Patient states he has not used IV drugs in 6 months. Symptom Onset: Sudden Symptom Course: Improving Quality: Pressure Severity Level: 3 Past Medical History - Provider Review Nursing Documentation Reviewed: Yes - Travel History Have you recently traveled outside [place] w/in the past 3 mons?: No - Infectious Disease Hx of Infectious Diseases: None - Tetanus Immunization Tetanus Immunization: Unknown - Past Medical History Past Medical History: No Previous - Cardiac Hx Hypertension: Yes - Pulmonary Hx Respiratory Disorders: No - Neurological Hx Seizures: Yes Hx Transient Ischemic Attacks (TIA): Yes - HEENT Hx HEENT Disorder: No - Renal Hx Renal Disorder: No - Endocrine/Metabolic Hx Endocrine Disorders: No - Hematological/Oncological Hx Blood Disorders: No - Integumentary Hx Dermatological Disorder: No - Musculoskeletal/Rheumatological Hx Osteoporosis: Yes - Gastrointestinal Hx Gastrointestinal Disorders: Yes Hx Gastroesophageal Reflux: Yes - Genitourinary/Gynecological Hx Genitourinary Disorders: No - Psychiatric Hx Psychophysiologic Disorder: Yes Hx Anxiety: Yes Hx Depression: Yes Hx Substance Use: Yes - Past Surgical History Past Surgical History: No Previous - Surgical History Other/Comment: hypospadias - Anesthesia Hx Anesthesia: Yes Hx Anesthesia Reactions: No Hx Malignant Hyperthermia: No - Suicidal Assessment Feels Threatened In Home Enviroment: No Family/Social History - Physician Review Nursing Documentation Reviewed: Yes Family/Social History: Unknown Family HX Smoking Status: Never Smoked Hx Alcohol Use: Yes Hx Substance Use: Yes Substance used: heroine today Hx Substance Use Treatment: No Allergies/Home Meds Allergies/Adverse Reactions: Allergies ibuprofen Allergy (Verified 04/20/17 16:35) RASH morphine Allergy (Verified 04/20/17 16:35) RASH Penicillins Allergy (Verified 04/20/17 16:35) SWELLING CLAMS Allergy (Uncoded 04/20/17 16:35) ANGIOEDEMA Review of Systems - Review of Systems Constitutional: absent: Fatigue, Fevers Respiratory: absent: SOB, Cough Cardiovascular: absent: Chest Pain, Palpitations Gastrointestinal: absent: Abdominal Pain, Nausea, Vomiting Skin: absent: Rash, Pruritis Neurological: absent: Headache, Dizziness Psychiatric: Anxiety. absent: Depression Physical Exam Vital Signs Reviewed: Yes Vital Signs Temp Pulse Resp BP Pulse Ox 04/20/17 17:43 104 H 04/20/17 17:36 98.0 F 116 H 18 128/74 100 Temperature: Afebrile Blood Pressure: Normal Pulse: Tachycardic Respiratory Rate: Normal Appearance: Positive for: Well-Appearing, Non-Toxic, Comfortable Pain Distress: None Mental Status: Positive for: Alert and Oriented X 3, other (anxious) - Systems Exam Head: Present: Atraumatic Mouth: Present: Moist Mucous Membranes Neck: Present: Normal Range of Motion Respiratory/Chest: Present: Clear to Auscultation, Good Air Exchange. No: Respiratory Distress, Accessory Muscle Use Cardiovascular: Present: Tachycardic. No: Murmurs Abdomen: Present: Normal Bowel Sounds. No: Tenderness, Distention, Peritoneal Signs, Rebound, Guarding Back: Present: Normal Inspection Upper Extremity: Present: Normal ROM, NORMAL PULSES, Erythema (left medial upper arm; there is a 2cm round, non tender area of erythema with induration; no surrounding erythema; full rom of arm. ), Neurovascularly Intact, Capillary Refill < 2s. No: Tenderness, Swelling, Deformity Lower Extremity: Present: Normal ROM Neurological: Present: GCS=15, Speech Normal Skin: Present: Warm, Dry, Normal Color. No: Rashes Psychiatric: Present: Alert, Oriented x 3 Medical Decision Making ED Course and Treatment: 04/20/17 17:30 Patient is nontoxic well-appearing in no distress vital signs are stable. CBC WNL CMP WNL Tylenol WNL Salicylate WNL Alcohol level WNL Urine drug screen + benzos, + opiates UA; wnl cxr: wnl ekg sinus tachycardia at 104 bpm normal axis normal intervals no ST elevations pt is medically cleared for PES evaluation Patient was seen and evaluated by PES screener: brown Patient is psychiatrically cleared for discharge Patient reassessment: Patient is nontoxic well-appearing no distress. Vital signs are stable. Patient with developing abscess to the medial aspect of the right upper arm. We'll start the patient on Bactrim. Advised warm compresses. Advised follow-up with the surgeon. Advised me to return if symptoms worsen or persist or if new concerning symptoms develop Patient verbalizes understanding of discharge instructions and need for immediate followup. all aspects of this case were discussed the attending of record. Impression; anxiety, abscess, arm bactrim; 1 tablet twice daily x 7 days warm compresses frequently, warm soaks follow up with the primary care physician within the next 2 days. follow up with the surgeon within the next 2 days. return immediately if symptoms worsen,persist or if new symptoms develop; high fevers, increasing pain, increasing redness, increasing swelling or if any other concerning symptoms develop Followup with behavioral health - Lab Interpretations Lab Results: 04/20/17 17:22 04/20/17 17:22 Lab Results 04/20/17 18:30: Urine Opiates Screen Positive H, Urine Methadone Screen Negative , Ur Barbiturates Screen Negative, Ur Phencyclidine Scrn Negative, Ur Amphetamines Screen Negative, U Benzodiazepines Scrn Positive, U Oth Cocaine Metabols Negative, U Cannabinoids Screen Negative 04/20/17 18:30: Urine Color Yellow, Urine Appearance Clear, Urine pH 7.0, Ur Specific [place] 1.020, Urine Protein Trace H, Urine Glucose (UA) Negative, Urine Ketones Trace H, Urine Blood Negative, Urine Nitrate Negative, Urine Bilirubin Negative, Urine Urobilinogen 0.2, Ur Leukocyte Esterase Negative, Urine RBC Pending, Urine WBC Pending 04/20/17 17:22: Alcohol, Quantitative < 10 04/20/17 17:22: Salicylates < 1 L, Acetaminophen < 10.0 L 04/20/17 17:22: Sodium 140, Potassium 3.8, Chloride 101, Carbon Dioxide 31, Anion Gap 13, BUN 7, Creatinine 0.6 L, Est GFR ( Amer) > 60, Est GFR (Non -Af Amer) > 60, Random Glucose 120 H, Calcium 9.6, Total Bilirubin 0.3, AST 56, ALT 49, Alkaline Phosphatase 80, Total Protein 7.8, Albumin 4.5, Globulin 3.3, Albumin/Globulin Ratio 1.4 04/20/17 17:22: WBC 7.3 D, RBC 4.46, Hgb 12.4 L, Hct 37.6 L, MCV 84.3, MCH 27.8 , MCHC 33.0, RDW 13.7, Plt Count 215, MPV 10.1, Gran % 71.5 H, Lymph % (Auto) 19.7 L, [place] % (Auto) 7.3 H, Eos % (Auto) 1.4 L, Baso % (Auto) 0.1, Gran # 5.23 , Lymph # 1.4, [place] # 0.5, Eos # 0.1, Baso # 0.01 - RAD Interpretation Radiology Orders: 04/20/17 16:58 CHEST PORTABLE [RAD] Stat - Medication Orders Current Medication Orders: Discontinued Medications Alprazolam (Xanax) 0.5 mg PO STAT STA PRN Reason: Protocol Stop: 04/20/17 18:00 Last Admin: 04/20/17 18:04 Dose: 0.5 mg Trimethoprim/Sulfamethoxazole (Bactrim Ds Tab) 1 tab PO STAT STA PRN Reason: Protocol Stop: 04/20/17 19:26 Disposition/Present on Arrival - Present on Arrival Any Indicators Present on Arrival: No History of DVT/PE: No History of Uncontrolled Diabetes: No Urinary Catheter: No History of Decub. Ulcer: No History Surgical Site Infection Following: None - Disposition Have Diagnosis and Disposition been Completed?: Yes Diagnosis: Anxiety, Abscess of arm Disposition: HOME/ ROUTINE Disposition Time: 19:29 Patient Plan: Discharge Patient Problems: Current Active Problems Problem Status Onset Abscess of arm Acute Anxiety Acute Condition: GOOD Discharge Instructions (ExitCare): Abscess (ED), Anxiety (ED) Additional Instructions: bactrim; 1 tablet twice daily x 7 days warm compresses frequently, warm soaks follow up with the primary care physician within the next 2 days. follow up with the surgeon within the next 2 days. return immediately if symptoms worsen,persist or if new symptoms develop; high fevers, increasing pain, increasing redness, increasing swelling or if any other concerning symptoms develop Followup with behavioral health Prescriptions: Sulfamethoxazole/Trimethoprim [Bactrim DS 800 mg-160 mg] 1 tab PO BID #14 tab Referrals: Desean Davis MD [Medical Doctor] - Follow up with primary Seferino Ramirez DO [Staff Provider] - Follow up with primary [facility] [Outside] - Follow up with primary [facility] [place] [facility] [Outside] - Follow up with primary Forms: [employer] (Swedish), WORK NOTE
[2017-04-20 17:37] VITALS: O2SAT 100
[2017-04-20 17:55] LABS: HEMOGLOBIN 12.4 g/dL (14.0-18.0); RBC 4.46 10^6/uL (3.5-6.1); WHITE BLOOD COUNT 7.3 10^3/ul (4.5-11.0)
[2017-04-20 17:56] LABS: BASO % 0.1 % (0.0-3.0); EOS % 1.4 % (1.5-5.0); GRAN # 5.23 (1.4-6.5); GRAN % 71.5 % (50.0-68.0); LYMPH % 19.7 % (22.0-35.0); MEAN CELL VOLUME 84.3 fl (80.0-105.0); MEAN CORPUSCULAR HEMOGLOBIN 27.8 pg (25.0-35.0); MEAN PLATELET VOLUME 10.1 fl (7.0-11.0); MONO % 7.3 % (1.0-6.0); RED CELL DISTRIBUTION WIDTH 13.7 % (11.5-14.5)
[2017-04-20 17:57] LABS: BASO # 0.01 K/mm3 (0.0-2.0); EOS # 0.1 (0.0-0.7); LYMPH # 1.4 (1.2-3.4); MONO # 0.5 (0.1-0.6)
[2017-04-20 18:07] LABS: ACETAMINOPHEN < 10.0 ug/ml (10.0-20.0); ALB/GLOB RATIO 1.4 (1.1-1.8); ALBUMIN 4.5 g/dL (3.0-4.8); ALT/SGPT 49 U/L (7-56); AST/SGOT 56 U/L (17-59); BLOOD UREA NITROGEN 7 mg/dL (7-21); CALCIUM 9.6 mg/dL (8.4-10.5); GFR AFRICAN-AMERICAN > 60; GFR NON-AFRICAN AMERICAN > 60; SALICYLATE < 1 mg/dL (2.0-20.0)
[2017-04-20 19:18] LABS: URINE BILIRUBIN NEGATIVE (NEGATIVE); URINE BLOOD NEGATIVE (NEGATIVE); URINE GLUCOSE (UA) NEGATIVE (NEGATIVE); URINE LEUKOCYTE ESTERASE NEGATIVE Leu/uL (NEGATIVE); URINE NITRATE NEGATIVE (NEGATIVE); URINE PROTEIN TRACE mg/dL (<30 mg/dL); URINE UROBILINOGEN 0.2 E.U./dL (<1 E.U./dL)
[2017-04-20] MEDS ORDERED: Tmp-Smz 800 mg-160 mg DS Tab PO STA (19:25)
[2017-04-20 19:32] LABS: BARBITURATES, UR NEGATIVE (NEGATIVE); PHENCYCLIDINE, UR NEGATIVE (NEGATIVE); URINE APPEARANCE CLEAR (CLEAR); URINE COLOR YELLOW (YELLOW)
[2017-04-20 19:46] LABS: BENZODIAZEPINES, UR POSITIVE (NEGATIVE); OPIATES, UR POSITIVE (NEGATIVE)
[2017-04-20 20:03] VITALS: BP 130/81; PULSE 98; RESP 17; TEMP 98.2
[2017-04-20 20:21] LABS: URINE BACTERIA LARGE (NEG); URINE CALCIUM OXALATE CRYSTALS SMALL /hpf; URINE EPITHELIAL CELLS 0 - 2 /hpf (0-5); URINE WBC 0 - 2 /hpf (0-6)
--- NOTE | 2017-04-21 08:56 | RAD ---
HISTORY: pes eval/ anxiety COMPARISON: 01/19/2017. FINDINGS: LUNGS: The lungs are well inflated and clear. PLEURA: No significant pleural effusion identified, no pneumothorax apparent. CARDIOVASCULAR: Normal. OSSEOUS STRUCTURES: No significant abnormalities. VISUALIZED UPPER ABDOMEN: Normal. OTHER FINDINGS: None. IMPRESSION: No active pulmonary disease.
--- NOTE | 2017-04-21 16:53 | CARD ---
APPROVED REPORT EKG Measurement Heart [id number] <Conclusion> Sinus tachycardia Otherwise normal ECG
== END 2017-04-20 20:06 | disposition home or self-care (01) ==
LOC: ED 16:31
DX: F41.9 Anxiety disorder, unspecified (principal); L02.414 Cutaneous abscess of left upper limb; I10 Essential (primary) hypertension; K21.9 Gastro-esophageal reflux disease without esophagitis

== ENCOUNTER 2017-07-01 07:42 | Emergency (ER) | payer MEDICAID, OTHER ==
[2017-07-01 07:42] VITALS: BMI 27.1
[2017-07-01 08:04] VITALS: BP 125/86; PULSE 118; RESP 18; TEMP 98.6; O2SAT 100
--- NOTE | 2017-07-01 08:04 | ED PDOC ---
Arrival/HPI - General Chief Complaint: Seizure Time Seen by Provider: 07/01/17 07:57 Historian: Patient, Parent - History of Present Illness Narrative History of Present Illness (Text): you were treated in the ED today for hx of seizures with last about 8 moths ago and you are on gabapentin for seizure treatment and admitted to recreational heroin use and then per your mother had a seizure today with head injury and hip pain but otherwise without any neck pain/tongue biting/urinating on self/ nausea/vomiting/headache/dizziness/difficulty breathing/chest pain/abdomen pain/ numbness/tingling/loss of limb function/pain with urination/thoughts to harm yourself or others or hallucinations. 07/01/17 08:00 Time/Duration: 1 hour Symptom Onset: Sudden Symptom Course: Resolved Quality: Aching Severity Level: 1 Activities at Onset: Rest Context: Sitting Past Medical History - Provider Review Nursing Documentation Reviewed: Yes - Travel History Have you recently traveled outside [place] w/in the past 3 mons?: No - Infectious Disease Hx of Infectious Diseases: None - Tetanus Immunization Tetanus Immunization: Unknown - Past Medical History Past Medical History: No Previous - Cardiac Hx Hypertension: Yes - Pulmonary Hx Respiratory Disorders: No - Neurological Hx Seizures: Yes Hx Transient Ischemic Attacks (TIA): Yes - HEENT Hx HEENT Disorder: No - Renal Hx Renal Disorder: No - Endocrine/Metabolic Hx Endocrine Disorders: No - Hematological/Oncological Hx Blood Disorders: No - Integumentary Hx Dermatological Disorder: No - Musculoskeletal/Rheumatological Hx Osteoporosis: Yes - Gastrointestinal Hx Gastrointestinal Disorders: Yes Hx Gastroesophageal Reflux: Yes - Genitourinary/Gynecological Hx Genitourinary Disorders: No - Psychiatric Hx Psychophysiologic Disorder: Yes Hx Anxiety: Yes Hx Depression: Yes Hx Substance Use: Yes - Past Surgical History Past Surgical History: No Previous - Surgical History Other/Comment: hypospadias - Anesthesia Hx Anesthesia: Yes Hx Anesthesia Reactions: No Hx Malignant Hyperthermia: No - Suicidal Assessment Feels Threatened In Home Enviroment: No Family/Social History - Physician Review Nursing Documentation Reviewed: Yes Family/Social History: No Known Family HX Smoking Status: Never Smoked Hx Alcohol Use: Yes Hx Substance Use: Yes Substance used: heroine today Hx Substance Use Treatment: No Allergies/Home Meds Allergies/Adverse Reactions: Allergies ibuprofen Allergy (Verified 04/20/17 16:35) RASH morphine Allergy (Verified 04/20/17 16:35) RASH Penicillins Allergy (Verified 04/20/17 16:35) SWELLING CLAMS Allergy (Uncoded 04/20/17 16:35) ANGIOEDEMA Home Medications: Home Meds Medication Instructions Recorded Confirmed Unobtainable 07/01/17 07/01/17 Review of Systems - Review of Systems Constitutional: Normal Eyes: Normal ENT: Normal Respiratory: Normal Cardiovascular: Normal Gastrointestinal: Normal Genitourinary Male: Normal Musculoskeletal: Other (hip pain) Skin: Normal Neurological: Seizure Endocrine: Normal Hemo/Lymphatic: Normal Psychiatric: Other (feels sad but denies suicidial/homicidal/hallucinations) Physical Exam Vital Signs Reviewed: Yes Vital Signs Temp Pulse Resp BP Pulse Ox 07/01/17 08:01 98.6 F 118 H 18 125/86 100 Pulse: Tachycardic Appearance: Positive for: Well-Appearing, Non-Toxic, Comfortable Pain Distress: None Mental Status: Positive for: Alert and Oriented X 3 - Systems Exam Head: Present: Atraumatic, Normocephalic Pupils: Present: PERRL Extroacular Muscles: Present: EOMI Conjunctiva: Present: Normal Ears: Present: Normal Mouth: Present: Moist Mucous Membranes Pharnyx: Present: Normal Nose (External): Present: Atraumatic Nose (Internal): Present: Normal Inspection Neck: Present: Normal Range of Motion Respiratory/Chest: Present: Clear to Auscultation, Good Air Exchange Cardiovascular: Present: Regular Rate and Rhythm Abdomen: No: Tenderness, Distention, Normal Bowel Sounds, Peritoneal Signs, Rebound, Guarding, McBurney's Point Tender, Rovsing's Sign Present, Hernias, Feeding Tubes, Ostomy Tubes, Mass/Organomegaly, Scars, Other Genitourinary Male: Present: Other (no c-t-l spinal or paraspinal tenderness) Back: Present: Normal Inspection Upper Extremity: Present: Normal Inspection Lower Extremity: Present: Normal Inspection, Other (no b/l hip tenderness or laxity) Neurological: Present: GCS=15, CN II-XII Intact, Speech Normal, Motor Func Grossly Intact Skin: Present: Warm, Normal Color Psychiatric: Present: Alert, Oriented x 3, Normal Insight, Normal Concentration Medical Decision Making ED Course and Treatment: you were treated in the ED today for hx of seizures with last about 8 moths ago and you are on gabapentin for seizure treatment and admitted to recreational heroin use and then per your mother had a seizure today with head injury and hip pain and feeling sad but otherwise without any neck pain/tongue biting/ urinating on self/nausea/vomiting/headache/dizziness/difficulty breathing/chest pain/abdomen pain/numbness/tingling/loss of limb function/pain with urination/ thoughts to harm yourself or others or hallucinations. You were otherwise breathing easily, smiling and talking to your mother easily, good strength/ sensation, walking easily, clear lungs, no abdomen tenderness, no spinal tenderness, no hip tenderness, no fever temp 98.1, fast heart rate 118 and repeat 97 on the monitor and not on chart, stable breathing rate 18, excellent oxygen level 100% room air, elevated blood pressure 125/86 which we recommend repeat in 2-3 days primary care office to determine further treatment, you have blood tests no infection count 5.6, stable blood level hemoglobin 12/platelets 201, stable chemistry, heart blood test negative less than 0.01, urine test refused, urine drug test refused, tylenol negative, aspirin level negative, alcohol level negative, radiology ct head no acute findings, ct pelvis no acute fracture, ECG sinus tachycardia/mildly fast, observation, done in the ED with improvement, counselled to stop using drugs and pt got up and stated he wanted to leave and was counselled to stay for further observation but walked out, counselled for complications/ and pt understood, nursing pulled out iv prior to walking out with mother. 1. Recommend follow-up primary days to review symptoms, referral to neurology to review your symptoms, referral to mental health clinic to review your symptoms. 4. If any worsening pain, fever, chills, nausea, vomiting, difficulty breathing, numbness, loss of limb function , pain with urination or any medical condition then return to the ED. Report Date : 07/01/2017 08:27:21 PROCEDURE: CT HEAD WITHOUT CONTRAST. Dictator : Miguel Thomas MD IMPRESSION: No acute findings Report Date : 07/01/2017 08:53:50 PROCEDURE: CT pelvis Dictator : Preet Cardenas MD IMPRESSION: No acute fracture. 07/01/17 09:34 07/01/17 12:01 Reassessment Condition: Re-examined, Improved - Lab Interpretations Lab Results: 07/01/17 08:00 07/01/17 08:00 Lab Results 07/01/17 08:00: Alcohol, Quantitative < 10 07/01/17 08:00: Salicylates < 1 L, Acetaminophen < 10.0 L 07/01/17 08:00: Sodium 142, Potassium 3.7, Chloride 102, Carbon Dioxide 29, Anion Gap 14, BUN 6 L, Creatinine 0.6 L, Est GFR ( Amer) > 60, Est GFR ( Non-Af Amer) > 60, Random Glucose 90, Calcium 9.4, Magnesium 1.9, Total Bilirubin 0.3, AST 51, ALT 55, Alkaline Phosphatase 88, Troponin I < 0.01, Total Protein 7.6, Albumin 4.3, Globulin 3.3, Albumin/Globulin Ratio 1.3 07/01/17 08:00: WBC 5.6 D, RBC 4.40, Hgb 12.6 L, Hct 36.9 L, MCV 83.9, MCH 28.6 , MCHC 34.1, RDW 13.1, Plt Count 201, MPV 9.3, Gran % 50.1, Lymph % (Auto) 37.7 H, [place] % (Auto) 9.3 H, Eos % (Auto) 2.7, Baso % (Auto) 0.2, Gran # 2.81, Lymph # (Auto) 2.1, [place] # (Auto) 0.5, Eos # (Auto) 0.2, Baso # (Auto) 0.01 I have reviewed the lab results: Yes - RAD Interpretation Radiology Orders: 07/01/17 07:58 HEAD W/O CONTRAST [CT] Stat 07/01/17 07:59 PELVIS W/O PO OR IV CONTRAST [CT] Stat Disposition/Present on Arrival - Present on Arrival Any Indicators Present on Arrival: No History of DVT/PE: No History of Uncontrolled Diabetes: No Urinary Catheter: No History of Decub. Ulcer: No History Surgical Site Infection Following: None - Disposition Have Diagnosis and Disposition been Completed?: Yes Diagnosis: Seizure Disposition: ELOPEMENT - ER ONLY Disposition Time: 12:03 Condition: IMPROVED Forms: [employer] (Belarusian)
[2017-07-01 08:18] LABS: BASO # 0.01 K/mm3 (0.0-2.0); BASO % 0.2 % (0.0-3.0); EOS # 0.2 (0.0-0.7); EOS % 2.7 % (1.5-5.0); GRAN # 2.81 (1.4-6.5); GRAN % 50.1 % (50.0-68.0); HEMOGLOBIN 12.6 g/dL (14.0-18.0); LYMPH # 2.1 (1.2-3.4); LYMPH % 37.7 % (22.0-35.0); MEAN CELL VOLUME 83.9 fl (80.0-105.0); MEAN CORPUSCULAR HEMOGLOBIN 28.6 pg (25.0-35.0); MEAN CORPUSCULAR HGB CONC 34.1 g/dl (31.0-37.0); MEAN PLATELET VOLUME 9.3 fl (7.0-11.0); MONO # 0.5 (0.1-0.6); MONO % 9.3 % (1.0-6.0); RBC 4.4 10^6/uL (3.5-6.1); RED CELL DISTRIBUTION WIDTH 13.1 % (11.5-14.5); WHITE BLOOD COUNT 5.6 10^3/ul (4.5-11.0)
[2017-07-01 08:29] LABS: ACETAMINOPHEN < 10.0 ug/ml (10.0-20.0); ALB/GLOB RATIO 1.3 (1.1-1.8); ALBUMIN 4.3 g/dL (3.0-4.8); ALT/SGPT 55 U/L (7-56); AST/SGOT 51 U/L (17-59); BLOOD UREA NITROGEN 6 mg/dL (7-21); CALCIUM 9.4 mg/dL (8.4-10.5); GFR AFRICAN-AMERICAN > 60; GFR NON-AFRICAN AMERICAN > 60; SALICYLATE < 1 mg/dL (2.0-20.0)
--- NOTE | 2017-07-01 08:29 | CT ---
PROCEDURE: CT HEAD WITHOUT CONTRAST. HISTORY: 22yoM, seizure with head injury COMPARISON: None available. TECHNIQUE: Axial computed tomography images were obtained through the head/brain without intravenous contrast. Radiation dose: Total exam DLP = 808 mGy-cm. This CT exam was performed using one or more of the following dose reduction techniques: Automated exposure control, adjustment of the mA and/or kV according to patient size, and/or use of iterative reconstruction technique. FINDINGS: HEMORRHAGE: No intracranial hemorrhage. BRAIN: No mass effect or edema. No atrophy or chronic microvascular ischemic changes. VENTRICLES: Unremarkable. No hydrocephalus. CALVARIUM: Unremarkable. PARANASAL SINUSES: Unremarkable as visualized. No significant inflammatory changes. MASTOID AIR CELLS: Unremarkable as visualized. No inflammatory changes. OTHER FINDINGS: None. IMPRESSION: No acute findings
[2017-07-01 08:40] LABS: TROPONIN I < 0.01 ng/mL
--- NOTE | 2017-07-01 08:55 | CT ---
PROCEDURE: CT pelvis HISTORY: 22yoM, seizure with fall/hip pain COMPARISON: None available TECHNIQUE: 2.5 mm contiguous axial sections were acquired through the pelvis. Sagittal and coronal images were reformatted from the axial scan. No prior examination is available for comparison. FINDINGS: There is no evidence of fracture. There is no lytic or blastic osseous lesion. The joint spaces and articular surfaces are preserved. The sacroiliac joints are unremarkable. The pubic symphysis is intact. Soft tissue structures of the pelvis are unremarkable. There is no evidence of ascites or hemoperitoneum. IMPRESSION: No acute fracture.
--- NOTE | 2017-07-01 21:02 | CARD ---
APPROVED REPORT EKG Measurement Heart [id number] <Conclusion> Sinus tachycardia Otherwise normal ECG
== END 2017-07-01 11:42 | disposition left against medical advice (07) ==
LOC: ED 07:42
DX: R56.9 Unspecified convulsions (principal); I10 Essential (primary) hypertension; Z86.73 Personal history of transient ischemic attack (TIA), and cerebral infarction without residual deficits
CPT/HCPCS: 70450; 72192; 80053; 83735; 84484; 85025; 93005; 99285; G0480

== ENCOUNTER 2018-02-03 06:17 | Emergency (ER) | payer MEDICAID ==
[2018-02-03 06:31] VITALS: BMI 30.7
[2018-02-03] MEDS ORDERED: Tetracaine 0.5% Ophth 2 ML BOTTLE OD STA (07:36)
--- NOTE | 2018-02-03 08:12 | ED PDOC ---
Arrival/HPI - General Chief Complaint: Eye Problem Time Seen by Provider: 02/03/18 07:36 Historian: Patient - History of Present Illness Narrative History of Present Illness (Text): 02/03/18 07:30 22 M with PMHx of seizures, drug abuse, and corneal abrasion on right eye, presents with cc of difficulty seeing and pain in corner of left eye, starting approximately 04:00 this morning. Patient reports he was initially unable to see out of both eyes, but notes he is now able to see out of the right eye but still having difficulty seeing through and opening the left eye. Patient states he feels like something is in the left eye. Patient notes similar symptoms in the past when he slept near fan and upon waking, he had difficulty opening and seeing through eyes; notes he was not near fan this time. Patient denies any other complaints. PMD: Dr. Jacob Time/Duration: 1-3 hours (patient notes onset around 04:00 this morning ) Symptom Onset: Sudden Symptom Course: Unchanged Activities at Onset: Light Past Medical History - Provider Review Nursing Documentation Reviewed: Yes - Infectious Disease Hx of Infectious Diseases: None - Tetanus Immunization Tetanus Immunization: Unknown - Past Medical History Past Medical History: No Previous - Cardiac Hx Hypertension: Yes - Pulmonary Hx Respiratory Disorders: No - Neurological Hx Seizures: Yes Hx Transient Ischemic Attacks (TIA): Yes - HEENT Hx HEENT Disorder: No - Renal Hx Renal Disorder: No - Endocrine/Metabolic Hx Endocrine Disorders: No - Hematological/Oncological Hx Blood Disorders: No - Integumentary Hx Dermatological Disorder: No - Musculoskeletal/Rheumatological Hx Osteoporosis: Yes - Gastrointestinal Hx Gastrointestinal Disorders: Yes Hx Gastroesophageal Reflux: Yes - Genitourinary/Gynecological Hx Genitourinary Disorders: No - Psychiatric Hx Psychophysiologic Disorder: Yes Hx Anxiety: Yes Hx Depression: Yes Hx Substance Use: Yes - Past Surgical History Past Surgical History: No Previous - Surgical History Other/Comment: hypospadias - Anesthesia Hx Anesthesia: Yes Hx Anesthesia Reactions: No Hx Malignant Hyperthermia: No - Suicidal Assessment Feels Threatened In Home Enviroment: No Family/Social History - Physician Review Nursing Documentation Reviewed: Yes Family/Social History: No Known Family HX Smoking Status: Never Smoked Hx Alcohol Use: Yes Hx Substance Use: Yes Substance used: heroine today Hx Substance Use Treatment: No Allergies/Home Meds Allergies/Adverse Reactions: Allergies ibuprofen Allergy (Verified 02/03/18 06:32) RASH morphine Allergy (Verified 02/03/18 06:32) RASH Penicillins Allergy (Verified 02/03/18 06:32) SWELLING CLAMS Allergy (Uncoded 02/03/18 06:32) ANGIOEDEMA Home Medications: Home Meds Medication Instructions Recorded Confirmed Gabapentin 600 mg PO BID 02/03/18 02/03/18 Metoprolol Tartrate [Lopressor] 25 mg PO DAILY 02/03/18 02/03/18 cloNIDine [Catapres] 0.1 mg PO BID 02/03/18 02/03/18 Review of Systems - Physician Review All systems were reviewed & negative as marked: Yes (All other systems negative except that noted in the HPI.) Physical Exam - Physical Exam Narrative Physical Exam (Text): PE: Gen: VS reviewed, alert, well developed, well nourished, nontoxic, mild distress Eye: Photophobia in left eye. Corneal abrasion to left eye, streaky abnormal fluorescent uptake in the left anterior chamber. Neck: no JVD, supple, no adenopathy CV: regular rate, regular rhythm, no rubs,no murmur, S1, S2 Pulm: no distress, clear to auscultation, no wheeze, no rhonchi, breath sounds equal, no rales Abd: soft, nontender, no guarding, no rebound, no rigidity Ext: no edema Skin: good color, no rash, no cyanosis Psych: responds appropriately to questions, normal affect Neuro: oriented x3, CN2-12 intact grossly, motor intact, sensation intact Vital Signs Reviewed: Yes Vital Signs Temp Pulse Resp BP Pulse Ox 02/03/18 06:37 97.9 F 126 H 20 125/80 97 Temperature: Afebrile Blood Pressure: Normal Pulse: Tachycardic (at 126) Respiratory Rate: Normal Appearance: Positive for: Well-Appearing, Non-Toxic Pain Distress: Mild Mental Status: Positive for: Alert and Oriented X 3 Medical Decision Making ED Course and Treatment: 02/03/18 07:30 Impression: 22 year old male presents with cc of difficulty seeing, noting pain to corner of left eye. Differential Diagnosis included but are not limited to: Plan: -- Tetracaine 0.5% Ophth Soln 1 drop OD -- Reassess and disposition Prior Visits: Notes and results from previous visits were reviewed. Patient was last seen in the emergency department on 07/01/17 for seizure with head injury and hip pain, as per mother, and pt admitted to heroin use. Patient eloped from Emergency department in improved condition. Progress Notes: 02/03/18 07:30 There was a streaky abnormal fluorescent uptake in the left anterior chamber. Patient reports immediate improvement in left eye pain after Tetracaine eye drops. Pt now able to open left eye without discomfort. Physical exam consistent with corneal abrasion. - Medication Orders Current Medication Orders: Discontinued Medications Tetracaine HCl (Tetracaine 0.5% Ophth Soln) 1 drop OD STAT STA Stop: 02/03/18 07:37 Last Admin: 02/03/18 07:59 Dose: Not Given Non-Admin Reason: administered by DR. Thao - Alexandru Statement The provider has reviewed the documentation as recorded by the Scribe Bertha Ram All medical record entries made by the Miahibjohn were at my direction and personally dictated by me. I have reviewed the chart and agree that the record accurately reflects my personal performance of the history, physical exam, medical decision making, and the department course for this patient. I have also personally directed, reviewed, and agree with the discharge instructions and disposition. Disposition/Present on Arrival - Present on Arrival Any Indicators Present on Arrival: No History of DVT/PE: No History of Uncontrolled Diabetes: No Urinary Catheter: No History of Decub. Ulcer: No History Surgical Site Infection Following: None - Disposition Have Diagnosis and Disposition been Completed?: Yes Diagnosis: Corneal abrasion Disposition: HOME/ ROUTINE Disposition Time: 08:08 Patient Plan: Discharge Condition: STABLE Discharge Instructions (ExitCare): Corneal Abrasion (DC) Additional Instructions: You must follow up with the exhibition specialist as soon as possible. EFE GALE, thank you for letting us take care of you today. Your provider was Dr. Unruly Thao and you were treated for left corneal abrasion. The emergency medical care you received today was directed at your acute symptoms. If you were prescribed any medication, please fill it and take as directed. It may take several days for your symptoms to resolve. Return to the Emergency Department if your symptoms worsen, do not improve, or if you have any other problems. Please contact your doctor or call one of the physicians/clinics you have been referred to that are listed on the Patient Visit Information form that is included in your discharge packet. Bring any paperwork you were given at discharge with you along with any medications you are taking to your follow up visit. Our treatment cannot replace ongoing medical care by a primary care provider outside of the emergency department. Thank you for allowing the [facility] team to be part of your care today. If you had an X-Ray or CT scan: A Radiologist will review the ED reading if any change in treatment is needed we will contact you. If you had a blood, urine, or wound culture: It will take several days for the results, if any change in treatment is needed we will contact you. If you had an STI test: It will take 48 hours for the results. Please call after 1 week if you have not heard back. Prescriptions: Erythromycin 0.5% [Erythromycin] 1 applic LEFTEYE QID 5 Days #1 tube Referrals: Hasmukh Jacob MD [Primary Care Provider] - Follow up with primary Ronen Workman MD [Staff Provider] - Follow up with primary [facility] [Outside] - Follow up with primary Forms: [employer] (Hungarian)
[2018-02-03 08:29] VITALS: PULSE 90; RESP 18; TEMP 98; O2SAT 98
[2018-02-03 08:30] VITALS: BP 122/80
== END 2018-02-03 08:30 | disposition home or self-care (01) ==
LOC: ED 06:17
DX: S05.02XA Injury of conjunctiva and corneal abrasion without foreign body, left eye, initial encounter (principal); X58.XXXA Exposure to other specified factors, initial encounter; Y92.9 Unspecified place or not applicable